=== PATIENT | female | born 1945 | race Caucasian/White ===

== ENCOUNTER 2017-06-21 22:45 | Emergency (ER) | payer MEDICARE ==
[2017-06-22 03:51] VITALS: BP 151/92
== END 2017-06-22 | disposition home or self-care (01) ==
LOC: ED 22:45
DX: T16.1XXA Foreign body in right ear, initial encounter (principal); W45.8XXA Other foreign body or object entering through skin, initial encounter; Y93.89 Activity, other specified; Y92.89 Other specified places as the place of occurrence of the external cause; Y99.8 Other external cause status